=== PATIENT | female | born 1985 | race Caucasian/White ===

== ENCOUNTER 2018-07-07 11:05 | Outpatient (CLI) | payer BC ==
--- NOTE | 2018-07-07 12:17 | ULT ---
OB ULTRASOUND COMPLETE GREATER THAN 14 WEEKS: Date: 07/07/18 HISTORY: Anatomy, size and dates. FINDINGS: Single, viable intrauterine fetus is noted in breech-type presentation. Placenta is primarily posteri ana maria without evidence for placenta previa. heart rate 141 beats/minute. Amniotic fluid is withi n normal limits. Anatomy: brain, four chamber heart, three vessel cord, stomach, bladder, kidneys, spine, and extremity r egions are unremarkable. Biometry: BPD: 4.3 cm - 19 weeks/0 days HC: 16.3 cm - 19 weeks/0 days AC: 13.7 cm - 19 weeks/1 day FL: 2.8 cm - 18 weeks/5 days IMPRESSION: Single, viable intrauterine fetus in breech presentation at 19 weeks/0 days, with EDC of 12/01/2018. Estimated weight is 265 gm, 68th percentile. POS: [facility]
== END 2018-07-07 11:06 | disposition home or self-care (01) ==
LOC: SCSULT 11:05
PROVIDERS: ATTEND Family Medicine
DX: Z34.82 Encounter for supervision of other normal pregnancy, second trimester (principal); O32.1XX0 Maternal care for breech presentation, not applicable or unspecified; Z3A.19 19 weeks gestation of pregnancy
CPT/HCPCS: 76805